=== PATIENT | female | born 2000 | race Caucasian/White ===

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

== ENCOUNTER 2021-02-25 14:00 | Outpatient (CLI) | payer OTHER, SELFPAY ==
[2021-02-25 15:21] LABS: HIV 1/2 Ab P24 Ag Result Negative (Negative)
[2021-02-25 16:38] LABS: Hepatitis C Virus Antibody Negative (Negative)
[2021-02-26 09:49] LABS: Rapid Plasma Reagin Non-Reactive (NonReactive)
== END 2021-02-25 14:01 | disposition home or self-care (01) ==
LOC: ANHLAB 14:03
PROVIDERS: PCP Clinical Nurse Specialist; Visit Provider Obstetrics & Gynecology
DX: Z11.3 Encounter for screening for infections with a predominantly sexual mode of transmission (principal)
CPT/HCPCS: 36415; 86592; 86695; 86696; 86703; 86803; G0432